=== PATIENT | female | born 1990 | race Caucasian/White ===

== ENCOUNTER 2016-11-02 13:52 | Outpatient (CLI) | payer OTHER | END 2016-11-02 13:53 | disposition EMS.NT | LOC: EMS 13:52 | PROVIDERS: ATTEND Surgery | DX: S70.311A Abrasion, right thigh, initial encounter (principal); V53.6XXA Passenger in pick-up truck or van injured in collision with car, pick-up truck or van in traffic accident, initial encounter; Y92.413 State road as the place of occurrence of the external cause ==